=== PATIENT | female | born 1950 | race Caucasian/White ===

== ENCOUNTER 2019-11-13 13:40 | Day surgery (SDC) | payer MEDICARE ==
[2019-11-13] VITALS (8 sets, daily range): BP systolic 104–136; BP diastolic 61–97
[~2019-11-13] VITALS: Ht 167.6 cm; Wt 62.6 kg
[~2019-11-13 13:40] MED LIST: EST1T PO; SYN0.1T PO
[2019-11-13] MEDS ORDERED: diphenhydrAMINE 25mg capsule PO PRN (14:00)
[2019-11-13] MEDS ORDERED: normal saline 1,000 ML IV SCH (14:00)
[2019-11-13] MEDS ORDERED: CHOL40002 PO (14:09)
[2019-11-13] MEDS ORDERED: [UNRECOGNIZED DRUG - OTHER] PO (14:09)
[2019-11-13] MEDS ORDERED: zinc PO (14:09)
[2019-11-13] MEDS ORDERED: MAGN400T39 PO (14:09)
[2019-11-13] MEDS ORDERED: ASPI-1053 PO (14:09)
[2019-11-13] MEDS ORDERED: SYN0.112T PO (14:09)
[2019-11-13 14:51] LABS: BASOPHILS % (AUTO) 0.5 % (0-1); EOSINOPHILS # (AUTO) 0.1 X10'3 (0-0.9); EOSINOPHILS % (AUTO) 2.2 % (0-6); HEMATOCRIT 43.8 % (35.0-45.0); HEMOGLOBIN 15.1 g/dl (12.0-16.0); MEAN CORPUSCULAR HGB CONC 34.4 g/dL (33.0-36.5); MEAN CORPUSCULAR VOLUME 93.1 FL (78-98); MEAN PLATELET VOLUME 7.2 FL (7.4-10.4); MONOCYTES # (AUTO) 0.6 X10'3 (0-0.9); MONOCYTES % (AUTO) 10.4 % (2-12); NEUTROPHILS # (AUTO) 3.3 X10'3 (1.8-7.7); NEUTROPHILS % (AUTO) 54.9 % (42-75); PLATELET COUNT 250 X10'3 (140-440); RED BLOOD COUNT 4.71 X10'6 (4.20-5.60); RED CELL DISTRIBUTION WIDTH 11.7 % (11.5-14.5); WHITE BLOOD COUNT 6.1 X10'3 (4.5-11.0)
[2019-11-13 14:58] LABS: ALBUMIN 3.8 G/DL (3.4-5.0); ANION GAP 9 (8-16); BLOOD UREA NITROGEN 17 MG/DL (7-18); BUN/CREATININE RATIO 18.5 (6.6-38.0); CALCIUM 9.2 MG/DL (8.5-10.1); CHLORIDE 108 MMOL/L (99-107); CREATININE 0.92 MG/DL (0.40-0.90); GLUCOSE 79 MG/DL (70-104); MAGNESIUM 2.8 MG/DL (1.5-2.4); POTASSIUM 3.7 MMOL/L (3.5-5.1); SODIUM 144 MMOL/L (135-145); TOTAL CARBON DIOXIDE 26.6 MMOL/L (24-32); eGFR 61 ML/MIN
[2019-11-13] MEDS ORDERED: fentaNYL/PF 50MCG/1 ML 2ML syringe ONE (16:03)
[2019-11-13] MEDS ORDERED: iohexol 350 MG/ML 50ML vial IV ONE (16:03)
[2019-11-13] MEDS ORDERED: iohexol 350MG/ML 100ml bottle IV ONE (16:03)
[2019-11-13] MEDS ORDERED: LIDOcaine 1% (10mg/ml)w/preservative injection 20ml MDV ONE (16:03)
[2019-11-13] MEDS ORDERED: midazolam 2 mg/2 ml injection ONE ×2 (16:03→16:36)
== END 2019-11-13 20:05 | disposition home or self-care (01) ==
LOC: SSTAY O 13:40
PROVIDERS: ATTEND Internal Medicine Cardiovascular Disease
DX: I20.0 Unstable angina (principal); E78.5 Hyperlipidemia, unspecified; E03.9 Hypothyroidism, unspecified; M19.90 Unspecified osteoarthritis, unspecified site; G62.9 Polyneuropathy, unspecified; Z90.710 Acquired absence of both cervix and uterus; Z98.890 Other specified postprocedural states; Z88.8 Allergy status to other drugs, medicaments and biological substances
CPT/HCPCS: 36415; 80048; 83735; 85025; 85610; 93458; 99152; C1769; C1894; J1644; J2001; J2250; J3010; Q9967; A6258; C1760